=== PATIENT | male | born 1985 | race Two or more races ===

== ENCOUNTER 2020-11-10 15:01 | Emergency (ER) | payer OTHER ==
[~2020-11-10] VITALS: Ht 172.7 cm; Wt 66.4 kg
[2020-11-10 15:46] LABS: BASO # 0.1 10^3/uL (0.0-0.2); BASO % 0.5 % (0.0-1.0); EOS # 0.1 10^3/uL (0.0-0.5); EOS % 0.7 % (0.0-3.0); HEMATOCRIT 47.6 % (42.0-52.0); HEMOGLOBIN 14.5 g/dl (13.5-17.5); LYMPH # 1.7 10^3/uL (1.5-5.0); LYMPH % 17.4 % (24.0-44.0); MEAN CORPUSCULAR HEMOGLOBIN 20.9 pg (27.0-33.0); MEAN CORPUSCULAR HGB CONC 30.5 g/dl (32.0-36.5); MEAN CORPUSCULAR VOLUME 68.7 fl (80.0-96.0); MONO # 0.7 10^3/uL (0.0-0.8); MONO % 7.7 % (0.0-5.0); NEUTROPHILS # 7.1 10^3/uL (1.5-8.5); NEUTROPHILS % 73.5 % (36.0-66.0); PLATELET COUNT, AUTOMATED 223 10^3/uL (150-450); RED BLOOD COUNT 6.93 10^6/uL (4.30-6.10); WHITE BLOOD COUNT 9.6 10^3/uL (4.0-10.0)
[2020-11-10] MEDS ORDERED: CEFD1CAP8 PO (16:39)
[2020-11-10] MEDS ORDERED: PYRI1TAB5 PO (16:39)
[2020-11-10] MEDS ORDERED: CEFDINIR 300 MG CAP (OMNICEF) PO ONE (16:45)
[2020-11-10] MEDS ORDERED: PHENAZOPYRIDINE 100 MG TAB PO ONE (16:45)
[2020-11-10 16:55] VITALS: BP 129/73
[2020-11-10 17:01] LABS: CHLAMYDIA DNA AMPLIFICATION NEGATIVE (NEGATIVE); GC DNA AMPLIFICATION NEGATIVE (NEGATIVE)
== END 2020-11-10 16:56 | disposition home or self-care (01) ==
LOC: M ED 15:01
DX: N39.0 Urinary tract infection, site not specified (principal); R31.9 Hematuria, unspecified

== ENCOUNTER 2021-04-04 07:06 | Emergency (ER) | payer OTHER ==
[~2021-04-04] VITALS: Ht 175.3 cm; Wt 68.3 kg
[~2021-04-04 07:06] MED LIST: CEFD1CAP8 PO; PYRI1TAB5 PO
[2021-04-04] MEDS ORDERED: NAPR-837 PO (07:38)
[2021-04-04 07:45] VITALS: BP 132/90
--- NOTE | 2021-04-04 09:34 | ECGEPIP ---
[facility] - ED Test Date: 2021-04-04 Pat Name: HUMPHREY WILLIS Department: Room: - Gender: Male Commissions Specialist: ANANYA : 1985 Requested By: Tanner Watters Order Number: [id number] Reading MD: Tanner Kelley Measurements Intervals [place] Rate: 52 P: 40 CO: 150 QRS: 56 QRSD: 74 T: 35 QT: 402 QTc: 373 Interpretive Statements Sinus bradycardia BENIGN EARLY REPOLARIZATION BASELINE ARTIFACT AFFECTS INTERPRETATION NO PRIORS FOR COMPARISON Electronically Signed on 04-04-2021 9:34:34 EDT by Tanner Kelley
== END 2021-04-04 08:05 | disposition home or self-care (01) ==
LOC: M ED 07:06
DX: S46.811A Strain of other muscles, fascia and tendons at shoulder and upper arm level, right arm, initial encounter (principal); S29.011A Strain of muscle and tendon of front wall of thorax, initial encounter; X50.1XXA Overexertion from prolonged static or awkward postures, initial encounter; Y92.138 Other place on military base as the place of occurrence of the external cause; Y93.B2 Activity, push-ups, pull-ups, sit-ups; Y99.1 Military activity

== ENCOUNTER 2021-07-14 18:25 | Emergency (ER) | payer OTHER ==
[~2021-07-14] VITALS: Ht 172.7 cm; Wt 65.9 kg
[~2021-07-14 18:25] MED LIST changes: +NAPR-837 PO
[2021-07-15 03:54] LABS: RSV AMPLIFICATION NEGATIVE (NEGATIVE)
[2021-07-15 07:33] LABS: HEMATOCRIT 38.8 % (42.0-52.0); HEMOGLOBIN 12.2 g/dl (13.5-17.5); MEAN CORPUSCULAR HEMOGLOBIN 20.7 pg (27.0-33.0); MEAN CORPUSCULAR HGB CONC 31.4 g/dl (32.0-36.5); MEAN CORPUSCULAR VOLUME 65.8 fl (80.0-96.0); PLATELET COUNT, AUTOMATED 159 10^3/uL (150-450)
[2021-07-15 07:55] LABS: ALBUMIN 3.1 GM/DL (3.2-5.2); ALT/SGPT 23 U/L (12-78); BILIRUBIN,DIRECT 0.1 MG/DL (0.0-0.2); BILIRUBIN,TOTAL 0.5 MG/DL (0.2-1.0); BLOOD UREA NITROGEN 12 MG/DL (7-18); CALCIUM LEVEL 8.8 MG/DL (8.5-10.1); CARBON DIOXIDE LEVEL 27 MEQ/L (21-32); CHLORIDE LEVEL 108 MEQ/L (98-107); CREATININE FOR GFR 0.93 MG/DL (0.70-1.30); GLOMERULAR FILTRATION RATE > 60.0 (>60); GLUCOSE, FASTING 87 MG/DL (70-100); POTASSIUM SERUM 3.8 MEQ/L (3.5-5.1); SODIUM LEVEL 139 MEQ/L (136-145); TOTAL PROTEIN 7.6 GM/DL (6.4-8.2)
[2021-07-15 08:03] LABS: LYMPHOCYTES 40 % (16-44); MONOCYTES 5 % (0-5); NEUTROPHILS 55 % (28-66); PLATELET ESTIMATE NORMAL (NORMAL)
--- NOTE | 2021-07-15 08:06 | REP ---
INDICATION: fevers/chills/body aches, h/o malaria COMPARISON: None. TECHNIQUE: PA and lateral. FINDINGS: The mediastinum and cardiac silhouette are normal. The lung white are clear and without acute consolidation, effusion, or pneumothorax. The skeletal structures are intact and normal. IMPRESSION: No acute cardiopulmonary process. <Electronically signed by Fred Etienne > 07/15/21 0803
[2021-07-15 08:15] VITALS: O2SAT 99
[2021-07-15 08:40] LABS: MONO SCRN NEGATIVE (NEGATIVE)
[2021-07-15 09:44] LABS: APPEARANCE, URINE CLEAR (CLEAR); BACTERIA, URINE AUTO NEGATIVE (NEGATIVE); BILIRUBIN, URINE AUTO NEGATIVE (NEGATIVE); BLOOD, URINE BLOOD NEGATIVE (NEGATIVE); COLOR, URINE YELLOW (YELLOW); GLUCOSE, URINE (UA) AUTO NEGATIVE (NEGATIVE); KETONE, URINE AUTO NEGATIVE (NEGATIVE); LEUKOCYTE ESTERASE, URINE AUTO NEGATIVE (NEGATIVE); MUCUS, URINE SMALL (NEGATIVE); NITRITE, URINE AUTO NEGATIVE (NEGATIVE); PROTEIN, URINE AUTO 1+ mg/dL (NEGATIVE); RBC, URINE AUTO 1 /HPF (0-3); SPECIFIC GRAVITY URINE AUTO 1.023 (1.002-1.035); SQUAMOUS EPITHELIAL CELL UR AU 0 /HPF (0-6); WBC, URINE AUTO 1 /HPF (0-3)
[2021-07-15 11:13] VITALS: BP 138/80
[2021-07-18 20:08] LABS: Lyme Disease IgG Ab 18 kDa Ban Absent (.); Lyme Disease IgG Ab 23 kDa Ban Absent (.); Lyme Disease IgG Ab 28 kDa Ban Absent (.); Lyme Disease IgG Ab 30 kDa Ban Absent (.); Lyme Disease IgG Ab 39 kDa Ban Absent (.); Lyme Disease IgG Ab 41 kDa Ban Absent (.); Lyme Disease IgG Ab 45 kDa Ban Absent (.); Lyme Disease IgG Ab 58 kDa Ban Absent (.); Lyme Disease IgG Ab 66 kDa Ban Absent (.); Lyme Disease IgG Ab 93 kDa Ban Present (.); Lyme Disease IgG West Blot Int Negative (.); Lyme Disease IgG/IgM Antibodie <0.91 ISR (0.00-0.90); Lyme Disease IgM Ab 23 kDa Ban Present (.); Lyme Disease IgM Ab 39 kDa Ban Present (.); Lyme Disease IgM Ab 41 kDa Ban Present (.); Lyme Disease IgM Ab Quantitati 1.63 index (0.00-0.79); Lyme Disease IgM West Blot Int Positive (.)
== END 2021-07-15 11:15 | disposition home or self-care (01) ==
LOC: M ED 18:25
DX: R50.9 Fever, unspecified (principal); M79.10 Myalgia, unspecified site; R53.81 Other malaise; Z86.13 Personal history of malaria

== ENCOUNTER 2023-05-12 18:27 | Emergency (ER) | payer OTHER ==
[~2023-05-12] VITALS: Ht 172.7 cm; Wt 72.8 kg
[~2023-05-12 18:27] MED LIST changes: -CEFD1CAP8 PO; +CEFD300C41 PO
[2023-05-12 18:28] VITALS: BP 132/82; TEMP 98.4; O2SAT 100
[2023-05-12] MEDS ORDERED: KETOROLAC 30 MG/ML 1ML VIAL IV ONE (22:30)
[2023-05-12] MEDS ORDERED: LIDOCAINE 4% CREAM 5GM (LMX4) TOP ONE (22:30)
[2023-05-12 22:53] LABS: BASO # 0.1 10^3/uL (0.0-0.2); BASO % 1.5 % (0.0-1.0); EOS # 0.1 10^3/uL (0.0-0.5); EOS % 2.2 % (0.0-3.0); HEMATOCRIT 44.4 % (42.0-52.0); HEMOGLOBIN 13.7 g/dl (13.5-17.5); LYMPH % 55.4 % (24.0-44.0); MEAN CORPUSCULAR HEMOGLOBIN 20.8 pg (27.0-33.0); MEAN CORPUSCULAR HGB CONC 30.9 g/dl (32.0-36.5); MEAN CORPUSCULAR VOLUME 67.3 fl (80.0-96.0); MONO # 0.5 10^3/uL (0.0-0.8); MONO % 8.3 % (2.0-8.0); NEUTROPHILS # 1.8 10^3/uL (1.5-8.5); NEUTROPHILS % 32.6 % (36.0-66.0); PLATELET COUNT, AUTOMATED 256 10^3/uL (150-450); WHITE BLOOD COUNT 5.5 10^3/uL (4.0-10.0)
[2023-05-12 23:22] LABS: BLOOD UREA NITROGEN 17 MG/DL (9-23); CALCIUM LEVEL 9.1 MG/DL (8.5-10.1); CARBON DIOXIDE LEVEL 29 MMOL/L (20-31); CHLORIDE LEVEL 103 MMOL/L (98-107); CK-MB VALUE MASS < 1.0 NG/ML (<3.6); CPK CREATINE PHOSPHOKINASE 241 U/L (46-171); GLOMERULAR FILTRATION RATE > 60.0 (>60); GLUCOSE, FASTING 86 MG/DL (60-100); MB/CK RELATIVE INDEX 0.41 (< OR =4); POTASSIUM SERUM 4.1 MMOL/L (3.5-5.1); SODIUM LEVEL 139 MMOL/L (136-145)
[2023-05-13] MEDS ORDERED: ANEC4CRE3 TOP (00:52)
== END 2023-05-13 01:00 | disposition home or self-care (01) ==
LOC: M ED 18:27
DX: R07.89 Other chest pain (principal); R00.1 Bradycardia, unspecified; M25.512 Pain in left shoulder
CPT/HCPCS: 71046; 73000; 80048; 82550; 82553; 84484; 85025; 85379; 93005; 96374; 99284; J1885

== ENCOUNTER → 2023-06-03 | Outpatient (CLI) | payer OTHER ==
[~2023-06-03] MED LIST changes: +ANEC4CRE3 TOP
== END ==
LOC: M RAD 10:15
PROVIDERS: ATTEND Physician Assistant
DX: M79.671 Pain in right foot (principal); M19.90 Unspecified osteoarthritis, unspecified site

== ENCOUNTER 2023-08-15 09:50 | Emergency (ER) | payer OTHER ==
[~2023-08-15] VITALS: Ht 172.7 cm; Wt 70.2 kg
[~2023-08-15 09:50] MED LIST changes: -CEFD300C41 PO; +CEFD300C42 PO
[2023-08-15] MEDS ORDERED: HYDR26CR TOP (11:45)
[2023-08-15] MEDS ORDERED: COLA100C5 PO (11:45)
[2023-08-15 12:08] VITALS: BP 137/92; TEMP 98.1; O2SAT 96
== END 2023-08-15 12:07 | disposition home or self-care (01) ==
LOC: M ED 09:50
DX: K64.4 Residual hemorrhoidal skin tags (principal)

== ENCOUNTER 2024-06-05 14:16 | Emergency (ER) | payer OTHER ==
[~2024-06-05] VITALS: Ht 167.6 cm; Wt 71.0 kg
[~2024-06-05 14:16] MED LIST changes: +CEFD1CAP9 PO; -CEFD300C42 PO; +COLA100C5 PO; +HYDR26CR TOP
[2024-06-05 14:17] VITALS: BP 101/65; TEMP 99; O2SAT 99
[2024-06-05] MEDS: IBUPROFEN 600MG TAB PO ONE (19:18)
== END 2024-06-05 19:23 | disposition home or self-care (01) ==
LOC: M ED 14:16
DX: S93.401A Sprain of unspecified ligament of right ankle, initial encounter (principal); Y92.9 Unspecified place or not applicable; Y93.9 Activity, unspecified; Y99.0 Civilian activity done for income or pay